=== PATIENT | female | born 1955 | race African-American/Black ===

== ENCOUNTER 2019-05-02 07:24 | Day surgery (SDC) | payer BC, OTHER ==
[2019-04-24 13:59] VITALS: BMI 41.9
[2019-05-02] MEDS ORDERED: MIDAZOLAM HCL 2 MG/2 ML SINGLE DOSE VIAL ONE ×2 (09:25→10:22)
[2019-05-02] MEDS ORDERED: ceFAZolin SODIUM 1 GM VIAL ONE (10:07)
[2019-05-02] MEDS ORDERED: PROPOFOL 20 ML ONE (10:11)
[2019-05-02] MEDS ORDERED: BUPIVACAINE HCL 0.25% 125 MG/50 ML VIAL ONE (10:11)
[2019-05-02] MEDS ORDERED: methylPREDNISolone ACET (DEPO) 40 MG/1 ML VIAL ONE (10:11)
[2019-05-02] MEDS ORDERED: DEXAMETHASONE SOD PHOSPHATE 4 MG/1 ML VIAL ONE (10:35)
[2019-05-02] MEDS ORDERED: ONDANSETRON 4 MG/2 ML VIAL ONE (10:35)
[2019-05-02] MEDS ORDERED: BUPIVACAINE HCL/PF 0.25% (2.5MG/ML) 10 ML VIAL IJ ONE (10:40)
[2019-05-02] MEDS ORDERED: methylPREDNISolone ACET (DEPO) 40 MG/1 ML VIAL IM ONE (10:40)
[2019-05-02] MEDS ORDERED: KETOROLAC TROMETHAMINE 30 MG/1 ML VIAL IVPUSH ONE (10:57)
[2019-05-02] MEDS ORDERED: oxyCODONE HCL 5 MG TABLET PO PRN (10:57)
[2019-05-02] MEDS ORDERED: ONDANSETRON 4 MG/2 ML VIAL IVPUSH PRN (10:57)
[2019-05-02] MEDS ORDERED: LACTATED RINGERS SOLUTION 1,000 ML IV SCH (11:00)
[2019-05-02] MEDS ORDERED: CYCLOBENZAPRINE HCL 10 MG TABLET (FP) PO PRN (11:02)
--- NOTE | 2019-05-02 11:04 | PN ---
Progress Note (short form) - Note Progress Note: 63F s/p right knee arthroscopy POD #0. -Pain control. -WBAT RLE. -Post-op analgesic meds ordered for delivery. -f/u post-op trial of void. -Diet as tolerated. -Keep dressing clean & dry; d/c on Sunday & place waterproof Band-Aids over incision sites. -Cane vs crutches. -f/u [facility] [place] office 7-10 days; call for appointment; . Jonathan Tuttle MD (Orthopaedic Surgery).
--- NOTE | 2019-05-02 11:06 | OP ---
Operative Note - Note: Operative Date: 05/02/19 Pre-Operative Diagnosis: Valgus deformity right knee with lateral meniscus derangement Operation: 1. Surgical arthroscopy right knee with removal of loose bodies. 2. 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 Menisci with degenerative tears. Post-Operative Diagnosis: Same as Pre-op Surgeon: Jonathan Tuttle Net Web Application Developer: Jose Cruz Tuttle Anesthesiologist/MANAGER INSTALLATION: Odin Cobb Anesthesia: Spinal Estimated Blood Loss (mls): 5 Fluid Volume Replaced (mls): 900 (Crystalloid) Operative Report Dictated: Yes
[2019-05-02 12:22] VITALS: PULSE 50; TEMP 97.8
[2019-05-02 13:03] VITALS: BP 134/78
[2019-05-03] MEDS ORDERED: SPIRONOLACTONE 25 MG TABLET (FP) PO SCH (10:00)
--- NOTE | 2019-05-20 09:20 | OP ---
Date of Operation: 05/02/2019 Surgeon: Jonathan Tuttle MD Pre-Operative Diagnosis: Valgus deformity, right knee, with lateral meniscus derangement. Post-Operative Diagnosis: Right knee: 1. Multiple loose bodies 2. Tricompartment degenerative joint disease. Surgical Procedure: Right knee: 1. Surgical arthroscopy with removal of loose bodies. (19212) 2. Intra-articular (large joint) injection with 5cc 0.25% Marcaine and 1cc depomedrol (40mg/mL). ([id number]) Anesthesia: General, LMA. Position: Supine. Incision: Standard anteromedial & anterolateral knee arthroscopy portals. Tourniquet Pressure: 250mmHg. Tourniquet Time: 17 minutes. Estimated Blood Loss: 5cc. Intravenous Fluid: 900cc crystalloid. Specimens: None. Drains: None. Complications: None. Urine output: None. Bacteriology: None. Transfusions: None. Closure: 3-0 Nylon. Indications: The patient was indicated for a surgical arthroscopy of the right knee with debridement to facilitate improved motion and mobilization, and to prevent complications associated with a sedentary lifestyle. The patient was identified in the holding area by her armband. A long discussion was held with the patient regarding the risks, benefits and alternatives of the above-named procedure. Risks include but are not limited to: pain, bleeding, infection, damage to surrounding structures (including nerves, blood vessels, skin, ligaments, tendons and bone), wound complications, need for further surgery, blood clots, myocardial infarction, pulmonary embolism, anesthesia complications, compartment syndrome, limb loss, limp, loss of function, and . Benefits as mentioned above. Alternatives include no surgery. All questions were answered. The patient understood and agreed to the procedure. Informed consent was obtained, witnessed and verified. The patients correct operative limb - the right lower extremity - was marked, and the patient was taken to the operating room after being seen by the anesthesia and nursing staff. Procedure: The patient was brought into the operating room, placed on the OR table and secured with a safety strap. Consent and the operative site were again verified with the patient and nursing and anesthesia staff. Anesthesia was then administered without complication. 2g IV Ancef were administered. A time out was done led by me, the attending surgeon. The patient was positioned with bony prominences well padded, and a tourniquet was placed proximally on the right thigh and set to 250mmHg. The operative limb was prepped in standard sterile fashion using betadine prep & scrub, wiped off with alcohol, and then DuraPrep applied. The operative limb was then free draped. Time out was again done, the limb was exsanguinated using an Esmarch, the tourniquet was inflated, and the case began. Surface anatomy of the knee was drawn, marking the patella, patellar tendon, and medial & lateral joint lines. With the knee flexed to 45 degrees, a standard anterolateral arthroscopy portal was made using an 11 blade. A blunt trocar was then inserted into the knee at the same angle as the incision. The blunt trocar was then slipped into the suprapatellar pouch as the knee was slowly extended. The trocar was removed through its overlying canula, and the arthroscope was inserted in its place. The fluid inflow, which had already been primed, was then attached to the canula along with the outflow suction tubing. The knee was then insufflated with normal saline solution. The suprapatellar pouch was then inspected with evidence of diffuse synovitis Multiple loose bodies were seen. The retro-patellar surfaces and trochlear groove both demonstrated Grade 4 chondromalacia with bone exposed. The patellofemoral articulation appeared congruous. Next, the arthroscope was delivered into the medial gutter of the knee as the knee was slowly flexed. Again, loose bodies were seen. With gentle valgus force applied to the knee, the arthroscope was slipped into the medial compartment. The cartilage of the medial femoral condyle and medial tibial plateau each demonstrated Grade 3-4 chondromalacia with deep fissures and exposed bone. The medial meniscus appeared intact. Next, the arthroscope was delivered into the intercondylar notch. The ACL was visualized and appeared degenerative. The PCL was not visualized. Gentle varus stress was applied to the knee as the arthroscope was delivered into the lateral compartment of the knee. The cartilage of the lateral femoral condyle revealed Grade 4 chondromalacia with bone exposed. The lateral meniscus appeared intact. The lateral tibial plateau revealed Grade 2 chondromalacia with superficial fissuring. The arthroscope was then delivered into the lateral gutter of the knee where no loose bodies were seen. The arthroscope was then returned to the suprapatellar pouch as the knee was gently extended. The knee was irrigated with 2-3L of normal saline solution. All fluid was suctioned out of the knee. An intra-articular injection consisting of 5mL of 0.25% Marcaine with 1mL of Depo-Medrol (40 mg/mL) was injected into the knee. Hemostasis was assured, and the incisions were closed primarily using 3-0 nylon sutures. Xeroform and a sterile, compressive dressing was applied. The tourniquet was released at a final time of 17 minutes. The sponge and needle counts were correct at the end of the case and I the attending was present and scrubbed throughout the case. The patient was then transferred to the recovery room in stable condition, as per the anesthesiology team, having tolerated the procedure well. Intra-operative photographs were captured using the arthroscope at numerous steps throughout the case. MD JI Contreras/[id number] MTDD
== END 2019-05-02 13:15 | disposition home or self-care (01) ==
LOC: FASU 07:24
PROVIDERS: ATTEND Orthopaedic Surgery Orthopaedic Surgery of the Spine
PROC: 0SCC4ZZ Extirpation of Matter from Right Knee Joint, Percutaneous Endoscopic Approach (ICD-10-PCS; principal; 2019-05-02 10:30)
DX: M23.41 Loose body in knee, right knee (principal); M17.11 Unilateral primary osteoarthritis, right knee
CPT/HCPCS: 94760

== ENCOUNTER 2022-09-28 07:52 | Day surgery (SDC) | payer OTHER ==
[2022-09-25 16:21] VITALS: BMI 47.1
[2022-09-28 09:56] VITALS: TEMP 98
[2022-09-28 09:57] VITALS: RESP 16
[2022-09-28 09:59] VITALS: BP 130/71; PULSE 70
== END 2022-09-28 10:19 | disposition home or self-care (01) ==
LOC: FASU-ENDO 07:52
PROVIDERS: ATTEND Internal Medicine Gastroenterology
PROC: 0DBN8ZX Excision of Sigmoid Colon, Via Natural or Artificial Opening Endoscopic, Diagnostic (ICD-10-PCS; principal; 2022-09-28 09:19)
DX: Z12.11 Encounter for screening for malignant neoplasm of colon (principal); D12.5 Benign neoplasm of sigmoid colon; K57.30 Diverticulosis of large intestine without perforation or abscess without bleeding
CPT/HCPCS: 88305-TC